=== PATIENT | female | born 1965 | race Caucasian/White ===

== ENCOUNTER 2017-06-05 14:47 | Inpatient (IN) | payer OTHER ==
[2017-06-05 16:35] VITALS: BMI 29.0
--- NOTE | 2017-06-05 20:21 | HP ---
CIWA Score - CIWA Score Nausea/Vomitin-Mild Nausea/No Vomiting Muscle Tremors: 4-Moderate,w/Arms Extend Anxiety: 4-Mod. Anxious/Guarded Agitation: 4-Moderately Restless Paroxysmal Sweats: 1-Minimal Palms Moist Orientation: 0-Oriented Tacttile Disturbances: 0-None Auditory Disturbances: 0-None Visual Disturbances: 0-None Headache: 1-Very Mild CIWA-Ar Total Score: 15 Admission ROS BHS - HPI Chief Complaint: WITHDRAWAL SX Allergies/Adverse Reactions: Allergies Allergy/AdvReac Type Severity Reaction Status Date / Time No Known Allergies Allergy Verified 06/05/17 17:50 History of Present Illness: 52 YEARS OLD FEMALE WITH LONG HISTORY OF XANAX NICOTINE DEPENDENCE HEPATITIS C TREATED AND BIPOLAR II IS ADMITTED TO DETOX Exam Limitations: No Limitations - Ebola screening Have you traveled outside of the country in the last 21 days: No Have you had contact with anyone from an Ebola affected area: No Have you been sick,other than usual withdrawal symptoms: No Do you have a fever: No - Review of Systems Constitutional: Changes in sleep, Weight Stable EENT: reports: Eye Pain Respiratory: reports: SOB with Exertion Cardiac: reports: No Symptoms Reported GI: reports: Nausea, Poor Fluid Intake, Indigestion, Abdominal cramping : reports: No Symptoms Reported Musculoskeletal: reports: Back Pain, Joint Pain (GENERAL JOINTS) Integumentary: reports: No Symptoms Reported Neuro: reports: Tremors Endocrine: reports: No Symptoms Reported Hematology: reports: No Symptoms Reported Psychiatric: reports: Judgement Intact, Orientated x3, Anxious, Depressed Other Systems: Reviewed and Negative Patient History - Patient Medical History Hx Anemia: No Hx Asthma: Yes Hx Chronic Obstructive Pulmonary Disease (COPD): Yes Hx Cancer: No Hx Cardiac Disorders: No Hx Congestive Heart Failure: No Hx Hypertension: No Hx Hypercholesterolemia: No Hx Pacemaker: No HX Cerebrovascular Accident: No Hx Seizures: No Hx Dementia: No Hx Diabetes: No Hx Gastrointestinal Disorders: Yes (Pt has GERD.) Hx Liver Disease: No Hx Genitourinary Disorders: No Hx Sexually Transmitted Disorders: No Hx Renal Disease (ESRD): No Hx Thyroid Disease: No Hx Human Immunodeficiency Virus (HIV): No Hx Hepatitis C: No Hx Depression: Yes Hx Suicide Attempt: No Hx Bipolar Disorder: No Hx Schizophrenia: No - Patient Surgical History Past Surgical History: Yes Hx Neurologic Surgery: No Hx Cataract Extraction: No Hx Cardiac Surgery: No Hx Lung Surgery: No Hx Breast Surgery: No Hx Breast Biopsy: No Hx Abdominal Surgery: Yes (abd hernia repair) Hx Appendectomy: No Hx Cholecystectomy: No Hx Genitourinary Surgery: No Hx Section: No Hx Orthopedic Surgery: No Hx Hysterectomy: No Anesthesia Reaction: No - PPD History Previous Implant?: Yes Documented Results: Negative w/o proof Implanted On Prior [facility] Admission?: Yes PPD to be Administered?: Yes - Reproductive History Patient is a Female of Child Bearing Age (11 -55 yrs old): Yes Last Menstrual Period: 06/05/91 Patient : No - Smoking Cessation Smoking history: Current every day smoker Have you smoked in the past 12 months: Yes Aproximately how many cigarettes per day: 5 Cigars Per Day: 0 Hx Chewing Tobacco Use: No Initiated information on smoking cessation: Yes 'Breaking Loose' booklet given: 06/05/17 - Substance & Tx. History Hx Alcohol Use: No Hx Substance Use: Yes Substance Use Type: Heroin, Tranquilizers Hx Substance Use Treatment: Yes (2010) - Substances Abused Alprazolam (Xanax) Route: Oral Frequency: Daily Amount used: 8 mg Age of first use: 51 Date of Last Use: 06/04/17 Benzodiazepine (Klonopin) Route: Oral Frequency: Daily Amount used: 6 MG Age of first use: 51 Date of Last Use: 06/05/17 Family Disease History - Family Disease History Family Disease History: Respiratory: Mother, Other: Father (/KILLED), Brother (KILLED), Sister (/OVERDOSE) Admission Physical Exam [facility] - Vital Signs Vital Signs: Vital Signs - 24 hr 06/05/17 16:34 Temperature 98 F Pulse Rate 81 Respiratory 20 Rate Blood Pressure 123/87 - Physical General Appearance: Yes: Appropriately Dressed, Mild Distress, Obese, Tremorous , Irritable, Sweating, Anxious HEENTM: Yes: Hearing grossly Normal, Normal ENT Inspection, Normocephalic, Normal Voice Respiratory: Yes: Chest Non-Tender, No Respiratory Distress, No Accessory Muscle Use, Wheezing, Hyperresonant, Inspiration Neck: Yes: Supple, Trachea in good position Breast: Yes: Breasts Symetrical Cardiology: Yes: Regular Rhythm, Regular Rate, S1, S2 Abdominal: Yes: Normal Bowel Sounds, Non Tender, Soft Genitourinary: Yes: Within Normal Limits Musculoskeletal: Yes: full range of Motion, Gait Steady, Back pain, Muscle Pain Extremities: Yes: Normal Inspection, Normal Range of Motion, Non-Tender, Tremors Neurological: Yes: Fully Oriented, Alert, Motor Strength 5/5, Normal Response, Sensory Deficit Integumentary: Yes: Warm Lymphatic: Yes: Within Normal Limits - Diagnostic (1) Sedative, hypnotic or anxiolytic dependence with withdrawal, uncomplicated Current Visit: Yes Status: Acute (2) Methadone maintenance therapy patient Current Visit: Yes Status: Chronic Comment: 40 MG VERIFICATION PENDING (3) Nicotine dependence Current Visit: Yes Status: Acute Qualifiers: Nicotine product type: cigarettes Substance use status: in withdrawal Qualified Code(s): F17.213 - Nicotine dependence, cigarettes, with withdrawal (4) Hepatitis C Current Visit: Yes Status: Resolved Qualifiers: Viral hepatitis chronicity: unspecified Hepatic coma status: without hepatic coma Qualified Code(s): B19.20 - Unspecified viral hepatitis C without hepatic coma (5) COPD (chronic obstructive pulmonary disease) Current Visit: Yes Status: Chronic Qualifiers: COPD type: emphysema Emphysema type: unilateral Qualified Code(s ): J43.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] (6) GERD (gastroesophageal reflux disease) Current Visit: Yes Status: Chronic Qualifiers: Esophagitis presence: without esophagitis Qualified Code(s): K21.9 - Gastro-esophageal reflux disease without esophagitis (7) Bipolar II disorder Current Visit: Yes Status: Suspected Cleared for Admission S - Detox or Rehab [facility] Level of Care: Medically Managed Detox Regimen/Protocol: Valium S Breath Alcohol Content Breath Alcohol Content: 0 Urine Pregancy Test - Result Urine Test Results: Negative- NO Line Present Urine Drug Screen - Results Drug Screen Negative: No Urine Drug Screen Results: BZO-Benzodiazepines, MTD-Methadone, TCA-Tricyclic Antidepress
[2017-06-05] MEDS ORDERED: diazePAM 5 MG TABLET PO ONE (20:29)
[2017-06-05] MEDS ORDERED: NICOTINE POLACRILEX 2 MG GUM BC PRN (20:29)
[2017-06-05] MEDS ORDERED: LOPERAMIDE HCL 2 MG CAPSULE PO PRN (20:29)
[2017-06-05] MEDS ORDERED: MENTHOL/PHENOL 1 EACH UD MM PRN (20:29)
[2017-06-05] MEDS ORDERED: MAG HYDROX/AL HYDROX/SIMETH 30 ML UNIT-DOSE CUP PO PRN (20:29)
[2017-06-05] MEDS ORDERED: MAGNESIUM HYDROX 2400MG/30ML ORAL SUSPENSION 30 ML CUP PO PRN (20:29)
[2017-06-05] MEDS ORDERED: guaiFENesin/D-METHORPHAN HB 10 ML UNIT-DOSE CUPS PO PRN (20:29)
[2017-06-05] MEDS ORDERED: diphenhydrAMINE HCL 50 MG CAPSULE PO PRN (20:29)
[2017-06-05] MEDS ORDERED: MAGNESIUM CITRATE 300 ML BOTTLE PO PRN (20:29)
[2017-06-05] MEDS ORDERED: P-EPHED 60MG/TRIPROLIDI 2.5MG TABLET PO PRN (20:29)
[2017-06-05] MEDS ORDERED: ACETAMINOPHEN 325 MG TABLET (FP) PO PRN (20:29)
[2017-06-05] MEDS ORDERED: ALBUTEROL SO4 18 GM HFA INHALER IH PRN (20:31)
[2017-06-05] MEDS ORDERED: ALBUTEROL SO4 2.5/IPRATROPIUM 0.5 INH SOL 3 ML VIAL.NEB. NEB PRN (20:32)
[2017-06-05] MEDS: THIAMINE HCL 100 MG TABLET (FP) PO SCH (22:43)
[2017-06-05] MEDS: RANITIDINE HCL 150 MG TABLET (FP) PO SCH (22:43)
[2017-06-05] MEDS: BUDESONIDE/FORMETEROL FUMARATE 80/4.5 mcg INHALER IH SCH (22:45)
[2017-06-05] MEDS: diazePAM 5 MG TABLET PO SCH (23:03)
[2017-06-05 23:27] LABS: URINE APPEARANCE SLCLOUDY; URINE BILIRUBIN NEGATIVE (NEGATIVE); URINE BLOOD 1+ (NEGATIVE); URINE COLOR YELLOW; URINE GLUCOSE (UA) NEGATIVE (NEGATIVE); URINE KETONE NEGATIVE (NEGATIVE); URINE NITRITE NEGATIVE (NEGATIVE); URINE PROTEIN NEGATIVE (NEGATIVE); URINE UROBILINOGEN NEGATIVE mg/dL (0.2-1.0)
[2017-06-05 23:30] LABS: URINE LEUK ESTERASE 1+ (NEGATIVE)
[2017-06-05 23:55] LABS: URINE BACTERIA RARE /hpf (NONE SEEN); URINE HYALINE CAST 2 /lpf; URINE MUCUS RARE; URINE RBC 11 /hpf (0-3); URINE WBC 14 /hpf (3-5)
[2017-06-06] MEDS: diazePAM 5 MG TABLET PO SCH ×3 (05:17→22:17)
[2017-06-06] MEDS: PRENATAL VITAMINS W/ FOLIC ACID TABLET (FP) PO SCH (10:12)
[2017-06-06] MEDS: RANITIDINE HCL 150 MG TABLET (FP) PO SCH ×2 (10:12→22:17)
[2017-06-06] MEDS: diazePAM 5 MG TABLET PO PRN ×2 (10:12→17:51)
[2017-06-06] MEDS: NICOTINE 14 MG/24 HOURS TOPICAL PATCH TD SCH (10:12)
[2017-06-06] MEDS: BUDESONIDE/FORMETEROL FUMARATE 80/4.5 mcg INHALER IH SCH ×2 (10:13→22:18)
[2017-06-06] MEDS: METHADONE HCL 40 MG DISPERSABLE TABLET PO SCH (10:14)
--- NOTE | 2017-06-06 10:17 | PN ---
S CIWA - CIWA Score Nausea/Vomitin Muscle Tremors: 3 Anxiety: 3 Agitation: 2 Paroxysmal Sweats: 1-Minimal Palms Moist Orientation: 0-Oriented Tacttile Disturbances: 1-Very Mild Itch/Numbness Auditory Disturbances: 1-Very Mild Visual Disturbances: 1-Very Mild Sensitivity Headache: 2-Mild CIWA-Ar Total Score: 17 BHS Progress Note (SOAP) Subjective: ALERT,IRRITABLE,ANXIOUS,INTERRUPTED SLEEP,TREMOR Objective: 06/06/17 10:15 Vital Signs Temperature 97.7 F 06/06/17 06:21 Pulse Rate 58 L 06/06/17 06:21 Respiratory Rate 16 06/06/17 06:21 Blood Pressure 107/60 06/06/17 06:21 O2 Sat by Pulse Oximetry (%) EKG NSR 60/MIN NO CHEST PAIN,NO SOB,NO DIZZINESS Laboratory Last Values Urine Color Yellow 06/05/17 22:21 Urine Appearance Slcloudy 06/05/17 22:21 Urine pH 5.0 (5.0-8.0) 06/05/17 22:21 Urine Protein Negative (NEGATIVE) 06/05/17 22:21 Urine Glucose (UA) Negative (NEGATIVE) 06/05/17 22:21 Urine Ketones Negative (NEGATIVE) 06/05/17 22:21 Urine Blood 1+ (NEGATIVE) H 06/05/17 22:21 Urine Nitrite Negative (NEGATIVE) 06/05/17 22:21 Urine Bilirubin Negative (NEGATIVE) 06/05/17 22:21 Urine Urobilinogen Negative mg/dL (0.2-1.0) 06/05/17 22:21 Urine RBC 11 /hpf (0-3) 06/05/17 22:21 Urine WBC 14 /hpf (3-5) 06/05/17 22:21 Ur Epithelial Cells Moderate /hpf (FEW) 06/05/17 22:21 Urine Bacteria Rare /hpf (NONE SEEN) 06/05/17 22:21 Hyaline Casts 2 /lpf 06/05/17 22:21 Urine Mucus Rare 06/05/17 22:21 LABS PENDING Assessment: 06/06/17 10:16 WITHDRAWAL SYMPTOM Plan: CONTINUE DETOX
[2017-06-06 10:33] LABS: ALBUMIN 3.8 g/dl (3.4-5.0); ALK PHOS 62 U/L (45-117); ANION GAP 8 (8-16); BILIRUBIN,TOTAL 0.4 mg/dL (0.2-1.0); CO2 28 mmol/L (21-32); GLUCOSE,RANDOM 80 mg/dL (74-106); SGOT/AST 12 U/L (15-37); SGPT/ALT 21 U/L (12-78); TOT PROT 7.1 g/dl (6.4-8.2)
[2017-06-06] MEDS ORDERED: FLU VACCINE QUAD 60 MCG/0.5 ML (MDV 17-18) IM ONE (12:00)
--- NOTE | 2017-06-06 13:06 | EKG ---
Test Reason : Blood Pressure : / mmHG Vent. Rate : 060 BPM Atrial Rate : 060 BPM P-R Int : 148 ms QRS Dur : 102 ms QT Int : 460 ms P-R-T Axes : 068 040 029 degrees QTc Int : 460 ms NORMAL SINUS RHYTHM RSR' OR QR PATTERN IN V1 SUGGESTS RIGHT VENTRICULAR CONDUCTION DELAY NO PREVIOUS ECGS AVAILABLE Confirmed by LAVERN WELLINGTON MD ([id number]) on 06/06/2017 1:06:06 PM Referred By: Confirmed By:LAVERN WELLINGTON MD
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
[2017-06-06 20:10] LABS: MCH 29.2 pg (25.7-33.7); MCHC 33.5 g/dl (32.0-36.0); MEAN CELL VOLUME 87.1 fl (80-96); PLATELET COUNT 241 K/MM3 (134-434); RDW 14.2 % (11.6-15.6); WHITE BLOOD COUNT 5.1 K/mm3 (4.0-10.0)
[2017-06-06] MEDS: THIAMINE HCL 100 MG TABLET (FP) PO SCH (22:17)
[2017-06-06] MEDS: risperiDONE 2 MG TABLET PO SCH (22:20)
[2017-06-06] MEDS: lamoTRIgine 100 MG TABLET (FP) PO SCH (22:20)
[2017-06-06] MEDS: BENZTROPINE MESYLATE 1 MG TABLET (FP) PO SCH (22:21)
[2017-06-07] MEDS: METHADONE HCL 40 MG DISPERSABLE TABLET PO SCH (05:58)
[2017-06-07] MEDS: BENZTROPINE MESYLATE 1 MG TABLET (FP) PO SCH ×2 (10:25→22:08)
[2017-06-07] MEDS: PRENATAL VITAMINS W/ FOLIC ACID TABLET (FP) PO SCH (10:25)
[2017-06-07] MEDS: BUDESONIDE/FORMETEROL FUMARATE 80/4.5 mcg INHALER IH SCH ×2 (10:26→22:07)
[2017-06-07] MEDS: RANITIDINE HCL 150 MG TABLET (FP) PO SCH ×2 (10:26→22:07)
[2017-06-07] MEDS: diazePAM 5 MG TABLET PO SCH ×2 (10:26→22:06)
[2017-06-07] MEDS: NICOTINE 14 MG/24 HOURS TOPICAL PATCH TD SCH (10:26)
[2017-06-07] MEDS: QUEtiapine FUMARATE 50 MG TABLET PO SCH (10:26)
--- NOTE | 2017-06-07 11:09 | PN ---
S CIWA - CIWA Score Nausea/Vomitin Muscle Tremors: 3 Anxiety: 3 Agitation: 2 Paroxysmal Sweats: 1-Minimal Palms Moist Orientation: 0-Oriented Tacttile Disturbances: 1-Very Mild Itch/Numbness Auditory Disturbances: 1-Very Mild Visual Disturbances: 0-None Headache: 2-Mild CIWA-Ar Total Score: 16 BHS Progress Note (SOAP) Subjective: ALERT,IRRITABLE,ANXIOUS,INTERRUPTED SLEEP,TREMOR,PAIN IN THE BODY Objective: 06/07/17 11:07 Vital Signs Temperature 97.3 F L 06/07/17 06:29 Pulse Rate 59 L 06/07/17 06:29 Respiratory Rate 16 06/07/17 06:29 Blood Pressure 108/70 06/07/17 06:29 O2 Sat by Pulse Oximetry (%) 06/07/17 11:08 Laboratory Last Values WBC 5.1 K/mm3 (4.0-10.0) 06/06/17 08:00 RBC 4.14 M/mm3 (3.60-5.2) 06/06/17 08:00 Hgb 12.1 GM/dL (10.7-15.3) 06/06/17 08:00 Hct 36.1 % (32.4-45.2) 06/06/17 08:00 MCV 87.1 fl (80-96) 06/06/17 08:00 MCH 29.2 pg (25.7-33.7) 06/06/17 08:00 MCHC 33.5 g/dl (32.0-36.0) 06/06/17 08:00 RDW 14.2 % (11.6-15.6) 06/06/17 08:00 Plt Count 241 K/MM3 (134-434) 06/06/17 08:00 MPV 9.0 fl (7.5-11.1) 06/06/17 08:00 Sodium 141 mmol/L (136-145) 06/06/17 08:00 Potassium 4.4 mmol/L (3.5-5.1) 06/06/17 08:00 Chloride 105 mmol/L (98-107) 06/06/17 08:00 Carbon Dioxide 28 mmol/L (21-32) 06/06/17 08:00 Anion Gap 8 (8-16) 06/06/17 08:00 BUN 24 mg/dL (7-18) H 06/06/17 08:00 Creatinine 1.0 mg/dL (0.55-1.02) 06/06/17 08:00 Creat Clearance w eGFR 58.45 (>60) 06/06/17 08:00 Random Glucose 80 mg/dL (74-106) 06/06/17 08:00 Calcium 9.0 mg/dL (8.5-10.1) 06/06/17 08:00 Total Bilirubin 0.4 mg/dL (0.2-1.0) 06/06/17 08:00 AST 12 U/L (15-37) L 06/06/17 08:00 ALT 21 U/L (12-78) 06/06/17 08:00 Alkaline Phosphatase 62 U/L (45-117) 06/06/17 08:00 Total Protein 7.1 g/dl (6.4-8.2) 06/06/17 08:00 Albumin 3.8 g/dl (3.4-5.0) 06/06/17 08:00 Urine Color Yellow 06/05/17 22:21 Urine Appearance Slcloudy 06/05/17 22:21 Urine pH 5.0 (5.0-8.0) 06/05/17 22:21 Ur Specific [place] 1.025 (1.005-1.025) 06/05/17 22:21 Urine Protein Negative (NEGATIVE) 06/05/17 22:21 Urine Glucose (UA) Negative (NEGATIVE) 06/05/17 22:21 Urine Ketones Negative (NEGATIVE) 06/05/17 22:21 Urine Blood 1+ (NEGATIVE) H 06/05/17 22:21 Urine Nitrite Negative (NEGATIVE) 06/05/17 22:21 Urine Bilirubin Negative (NEGATIVE) 06/05/17 22:21 Urine Urobilinogen Negative mg/dL (0.2-1.0) 06/05/17 22:21 Urine RBC 11 /hpf (0-3) 06/05/17 22:21 Urine WBC 14 /hpf (3-5) 06/05/17 22:21 Ur Epithelial Cells Moderate /hpf (FEW) 06/05/17 22:21 Urine Bacteria Rare /hpf (NONE SEEN) 06/05/17 22:21 Hyaline Casts 2 /lpf 06/05/17 22:21 Urine Mucus Rare 06/05/17 22:21 RPR Titer Nonreactive (NONREACTIVE) 06/06/17 08:00 Assessment: 06/07/17 11:08 WITHDRAWAL SYMPTOM Plan: CONTINUE DETOX
[2017-06-07] MEDS: diazePAM 5 MG TABLET PO PRN (14:07)
[2017-06-07] MEDS: lamoTRIgine 100 MG TABLET (FP) PO SCH (22:06)
[2017-06-07] MEDS: risperiDONE 2 MG TABLET PO SCH (22:07)
[2017-06-07] MEDS: THIAMINE HCL 100 MG TABLET (FP) PO SCH (22:08)
[2017-06-08] MEDS: METHADONE HCL 40 MG DISPERSABLE TABLET PO SCH (05:12)
--- NOTE | 2017-06-08 08:54 | PN ---
S Progress Note (SOAP) Subjective: alert,irritable,anxious,interrupted sleep Objective: 06/08/17 08:52 Vital Signs Temperature 97.3 F L 06/08/17 06:23 Pulse Rate 60 06/08/17 06:23 Respiratory Rate 16 06/08/17 06:23 Blood Pressure 120/69 06/08/17 06:23 O2 Sat by Pulse Oximetry (%) Assessment: 06/08/17 08:53 withdrawal symptom Plan: continue detox,discharge in am
[2017-06-08] MEDS: diazePAM 5 MG TABLET PO SCH ×2 (10:09→22:06)
[2017-06-08] MEDS: BENZTROPINE MESYLATE 1 MG TABLET (FP) PO SCH ×2 (10:10→22:06)
[2017-06-08] MEDS: QUEtiapine FUMARATE 50 MG TABLET PO SCH (10:10)
[2017-06-08] MEDS: RANITIDINE HCL 150 MG TABLET (FP) PO SCH ×2 (10:10→22:06)
[2017-06-08] MEDS: NICOTINE 14 MG/24 HOURS TOPICAL PATCH TD SCH (10:11)
[2017-06-08] MEDS: PRENATAL VITAMINS W/ FOLIC ACID TABLET (FP) PO SCH (10:11)
[2017-06-08] MEDS: BUDESONIDE/FORMETEROL FUMARATE 80/4.5 mcg INHALER IH SCH ×2 (10:11→22:06)
[2017-06-08] MEDS: diazePAM 5 MG TABLET PO PRN (14:49)
[2017-06-08] MEDS: THIAMINE HCL 100 MG TABLET (FP) PO SCH (22:05)
[2017-06-08] MEDS: risperiDONE 2 MG TABLET PO SCH (22:05)
[2017-06-08] MEDS: lamoTRIgine 100 MG TABLET (FP) PO SCH (22:06)
[2017-06-09] MEDS: METHADONE HCL 40 MG DISPERSABLE TABLET PO SCH (06:08)
[2017-06-09] MEDS: PRENATAL VITAMINS W/ FOLIC ACID TABLET (FP) PO SCH (09:30)
[2017-06-09] MEDS: BENZTROPINE MESYLATE 1 MG TABLET (FP) PO SCH (09:30)
[2017-06-09] MEDS: RANITIDINE HCL 150 MG TABLET (FP) PO SCH (09:30)
[2017-06-09] MEDS: QUEtiapine FUMARATE 50 MG TABLET PO SCH (09:30)
[2017-06-09] MEDS: BUDESONIDE/FORMETEROL FUMARATE 80/4.5 mcg INHALER IH SCH (09:31)
[2017-06-09] MEDS: NICOTINE 14 MG/24 HOURS TOPICAL PATCH TD SCH (09:31)
--- NOTE | 2017-06-09 09:40 | DS ---
[facility] Detox Discharge Summary Admission Date: 06/05/17 Discharge Date: 06/09/17 - History Present History: Sedative Dependence, MMTP - Physical Exam Results Vital Signs: Vital Signs Temperature 96.4 F L 06/09/17 06:00 Pulse Rate 56 L 06/09/17 06:00 Respiratory Rate 18 06/09/17 06:00 Blood Pressure 109/54 06/09/17 06:00 O2 Sat by Pulse Oximetry (%) - Treatment Hospital Course: Detox Protocol Followed, Detoxed Safely, Responded well, Discharged Condition Good, Rehab Referral Accepted - Medication Discharge Medications: Ambulatory Orders Benztropine Mesylate [Cogentin -] 0.5 mg PO BID 06/05/17 Lamotrigine [Lamictal -] 200 mg PO HS 06/05/17 Quetiapine Fumarate [Seroquel -] 50 mg PO HS 06/05/17 Risperidone [Risperdal -] 4 mg PO HS 06/05/17 - Diagnosis (1) Insomnia Current Visit: Yes Status: Acute (2) Nicotine dependence Current Visit: Yes Status: Chronic Qualifiers: Nicotine product type: cigarettes Substance use status: uncomplicated Qualified Code(s): F17.210 - Nicotine dependence, cigarettes, uncomplicated; F17.210 - Nicotine dependence, cigarettes, uncomplicated (3) Opioid dependence on agonist therapy Current Visit: Yes Status: Acute (4) Sedative, hypnotic or anxiolytic dependence with withdrawal, uncomplicated Current Visit: Yes Status: Chronic (5) Bipolar disorder Current Visit: Yes Status: Chronic (6) COPD (chronic obstructive pulmonary disease) Current Visit: Yes Status: Chronic Qualifiers: COPD type: emphysema Emphysema type: unilateral Qualified Code(s ): J43.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]; J43.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]; J43.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]; J43.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] (7) GERD (gastroesophageal reflux disease) Current Visit: Yes Status: Chronic Qualifiers: Esophagitis presence: without esophagitis Qualified Code(s): K21.9 - Gastro-esophageal reflux disease without esophagitis; K21.9 - Gastro- esophageal reflux disease without esophagitis; K21.9 - Gastro-esophageal reflux disease without esophagitis (8) Methadone maintenance therapy patient Current Visit: Yes Status: Chronic (9) Bipolar II disorder Current Visit: Yes Status: Suspected (10) Hepatitis C Current Visit: Yes Status: Resolved Qualifiers: Viral hepatitis chronicity: unspecified Hepatic coma status: without hepatic coma Qualified Code(s): B19.20 - Unspecified viral hepatitis C without hepatic coma; B19.20 - Unspecified viral hepatitis C without hepatic coma - AMA Did Patient Leave Against Medical Advice: No
[2017-06-09] MEDS ORDERED: diazePAM 5 MG TABLET PO SCH (10:00)
[2017-06-09 11:20] VITALS: BP 124/73; PULSE 70; TEMP 97.9
== END 2017-06-09 13:10 | disposition home or self-care (01) | DRG 773 ==
LOC: YASAS 14:47 → Y6N 18:35
PROVIDERS: ADMIT Internal Medicine; ATTEND Internal Medicine
PROC: HZ2ZZZZ Detoxification Services for Substance Abuse Treatment (ICD-10-PCS; principal; 2017-06-05)
DX: F11.20 Opioid dependence, uncomplicated (principal); F13.230 Sedative, hypnotic or anxiolytic dependence with withdrawal, uncomplicated; F17.210 Nicotine dependence, cigarettes, uncomplicated; F31.81 Bipolar II disorder; G47.00 Insomnia, unspecified; K21.9 Gastro-esophageal reflux disease without esophagitis; J43.0 Unilateral pulmonary emphysema [MacLeod's syndrome]; B19.20 Unspecified viral hepatitis C without hepatic coma
CPT/HCPCS: 36415; 80053; 81003; 81015; 85027; 86593; 90688; 93005; 93010; G0008

== ENCOUNTER → 2019-05-04 | Outpatient (CLI) | payer OTHER | LOC: YHH 13:22 ==